=== PATIENT | female | born 1965 | race Caucasian/White ===

== ENCOUNTER → 2016-12-06 10:01 | Outpatient (CLI) | payer BC, OTHER ==
[2014-11-04 08:48] VITALS: BMI 31.8
[~2016-12-06 10:01] MED LIST: CYMBALTA60 MG PO; EFFEXOR37.5 MG PO; LORTAB 5/500 TA1 TA2 PO; MAXALT10 MG PO; MICROGESTIN FE1 TAB PO; MULTI-DAY VITAM1 TAB PO; VIACTIV PO; ZANAFLEX4 MG
--- NOTE | 2016-12-06 12:07 | NUR ---
Nutrition education for bariatric surgery: S: Pt reports she has had a gastric band for ~5 years. Pt states she has not been happy with the band due to it is either too tight or too lose and has caused her a lot of trouble. Pt did lose down to ~225# but due to issues with the band was unable to keep the weight off. Pt states she continues to work out. 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 Pt understands portion sizes of foods. O: 51 year old female Ht: 5'11" Wt: 243# IBW: 155# +/-10% BMI: 33.9 PMH: Gastric band A: Pt is very familiar with pre/post op diet phases. Pt states with the gastric band the full, pureed and soft diets did not last as long as with the gastric sleeve. Reviewed pre/post of diet phases; liquids between meals; dumping syndrome; 3 ounce meal size; no carbonated drinks or straws; protein needs and protein supplements; vitamin, mineral supplements; reviewed sample menus; stomach size; pouch stretching; no sweets, high fat foods or alcohol; eating out. Pt with very good understanding of dietary restrictions pre/post op. Pt with realistic expectations for weight loss; goal wt: 215#. Pt verbalizes understanding of all diet changes. RDN feels pt is very motivated to make the necessary lifestyle changes needed to lose weight and keep weight off long-term. P: Provided pt with printed diet information and RDN name and phone number. RDN will be available if needed. Thank you for the consult.
== END ==
LOC: D.FANS 10:01
DX: Z01.812 Encounter for preprocedural laboratory examination (principal)

== ENCOUNTER 2017-01-10 05:07 | Inpatient (IN) | payer BC, OTHER ==
[2017-01-09 08:45] LABS: HEMATOCRIT 39.6 % (36.0-48.0); HEMOGLOBIN 13.8 g/dL (12-16); MCH 34.5 pg (26.0-34.0); MCHC 34.8 g/dL (31.0-37.0); MEAN PLATELET VOLUME 9.6 fL (7.4-10.4); RDW 12.7 % (11.5-14.5); WBC 4.8 10x3/uL (4.8-10.8)
[2017-01-09 08:58] LABS: ANION GAP 13.5 mmol/L (8-16); CALCIUM 9.3 mg/dL (8.5-10.1); CARBON DIOXIDE 29.5 mmol/L (21.0-32.0); CREATININE - SERUM 0.9 mg/dL (0.6-1.3)
[~2017-01-10] VITALS: Ht 180.3 cm; Wt 112.3 kg
[2017-01-10 08:10] VITALS: BP 127/85; BMI 33.8
[2017-01-10 08:27] LABS: HCG URINE NEGATIVE (NEGATIVE)
[2017-01-10] MEDS ORDERED: HYDROCODON-ACE1 EAC7 PO (12:18)
--- NOTE | 2017-01-10 12:30 | NUR ---
RECEIVED TO ROOM 2210 FROM RECOVERY ROOM VIA BED. IV TO R HAND PATENT. LAP SITES X 4 TO ABDOMINAL WITH STERI STRIPS INTACT. VSS. RATES PAIN 2/3 ON PAIN SCALE. DENIES ANY NEEDS AT THIS TIME.
[2017-01-10 12:31] VITALS: BP 105/74
[2017-01-10 12:33] VITALS: BP 105/74; Ht 180.3 cm; Wt 112.3 kg
--- NOTE | 2017-01-10 13:27 | NUR ---
RESTING QUIETLY WITH EYES CLOSED. FAMILY AT BEDSIDE. VSS.
--- NOTE | 2017-01-10 16:07 | NUR ---
AMBULATED AROUND NURSING UNIT X 2 WITH STAFF. WILL SIT UP IN CHAIR AND ATTEMPT TO EAT SOME PUDDING. DENIES ANY FURTHER NEEDS AT THIS TIME.
--- NOTE | 2017-01-10 18:06 | NUR ---
UP AD MARIANGEL IN ROOM. VOIDING WITHOUT DIFFICULTY. TOLERATED FULL LIQUID DINNER. DENIES ANY NEEDS AT THIS TIME.
--- NOTE | 2017-01-10 19:13 | OP ---
PATIENT NAME: FILOMENA HORTA MEDICAL RECORD: [id number] :63 LOCATION:D.[facility] ADMISSION DATE: SURGEON: ANASTASIIA FORTUNE MD DATE OF OPERATION: 01/10/2017 SURGEON: Anastasiia Fortune MD PREOPERATIVE DIAGNOSES: 1. Gastric band procedure complication 2. Obesity. 3. Body mass index 34-34.9. 4. Chronic vomiting. 5. Gastroesophageal reflux disease. 6. Dysphagia. POSTOPERATIVE DIAGNOSES: 1. Gastric band procedure complication 2. Obesity. 3. Body mass index 34-34.9. 4. Chronic vomiting. 5. Gastroesophageal reflux disease. 6. Dysphagia. PROCEDURE PERFORMED: Laparoscopic gastric band removal. ANESTHESIA: General. COMPLICATIONS: None. SPECIMENS: Gastric band and subcutaneous port. Case was clean. ESTIMATED BLOOD LOSS: 50 cc. OPERATIVE COURSE: After consent was obtained, the patient was taken to the operating room and placed in the supine position on the operating table. Next, general anesthesia was given via endotracheal intubation after a timeout was taken to confirm the correct patient and procedure. The abdomen was prepped and draped in typical sterile fashion. Local anesthetic was injected just above the umbilicus. A stab incision was made with 11-blade scalpel. Using a 5-mm bladeless optical trocar, the abdomen was entered under direct laparoscopic vision. Adequate pneumoperitoneum was achieved. The abdominal cavity was inspected. No evidence of bowel injury. No evidence of bleeding. The patient was then placed in the steep reverse Trendelenburg position. At this time, trocars were placed after the administration of local anesthetic under direct laparoscopic vision, two 5-mm trocars into the right lateral quadrant, Anastasia liver retractor the subxiphoid position. The left lobe of the liver was retracted exposing the gastroesophageal junction. The band was meticulously dissected in combination of electrocautery and sharp scissor dissection. Once all adhesions were taken down, the band was released and the band was removed from stomach and placed in the left upper quadrant. The GE junction was copiously irrigated and suctioned. Hemostasis was obtained with combination of clips and electrocautery. There is no evidence of injury to the stomach. All adhesions were taken down as well as previous sutures to gain normal anatomical OPERATIVE REPORT [id number] FILOMENA HORTA position of the stomach and to release the wrap of the stomach around the old band. At this time, the abdomen was then copiously irrigated and suctioned. No evidence of bleeding, no evidence of bowel injury. The Anastasia liver retractor was removed. Next, a skin incision was made over the subcutaneous port. The subcutaneous tissue was dissected with electrocautery to the level of the port. The port was circumferentially dissected using electrocautery. At this time, the port was excised and the intra-abdominal fascia using electrocautery. The port and the gastric band were removed, dilating a small hole in the fascia and sent for permanent pathology. Next, laparoscope was reinserted. The abdominal cavity was reinspected. No evidence of bowel injury. No evidence of bleeding. All remaining instruments removed. Trocars removed. Skin was closed with 4-0 Monocryl, Mastisol and Steri-Strips. At the end of the case, all needle and sponge counts were correct. No complications occurred. The patient was extubated and transferred to the PACU in stable condition. TRANSINT:[id number] Voice Confirmation ID: [id number] DOCUMENT ID: [id number] ANASTASIIA FORTUNE MD at 1913 CC: [id number] DICTATION DATE: 01/10/17 1224 SPINDLE SANDER: 01/10/17 1758 [facility] [address] [place] [address]
--- NOTE | 2017-01-10 19:16 | NUR ---
PT IS SITTING UP IN BED WATCHING TV, STATED PAIN IS AT A 5, REQUESTED PAIN MEDICINE. 5 INCISIONS ON ABDOMINAL AREA, STERI STRIP, CLEAN AND DRY. NO SIGNS OF DISTRESS. BED IN LOW POSITION, CALL LIGHT IN REACH. CONTINUE WITH PLAN OF CARE
[2017-01-10 20:00] VITALS: BP 125/67
--- NOTE | 2017-01-10 21:50 | NUR ---
PT LYING IN BED, LIGHTS ARE TURNED OUT. EVEN RISE AND FALL OF CHEST, NO SIGNS OF DISTRESSCONTINUE TO MONITOR PT
--- NOTE | 2017-01-10 22:00 | NUR ---
PATIENT IS RESTING QUIETLY WITH EYES CLOSED. NO SIGNS OF DISTRESS NOTED. BED IN LOWEST POSITION, CALL LIGHT IN REACH. BED RIALS UP X'S 2.
[2017-01-11] VITALS: BP 111/65
[2017-01-11 04:00] VITALS: BP 103/55
[2017-01-11 05:36] LABS: BASOPHILS 0.2 % (0-2); EOSINOPHILS 2.1 % (0-7); HEMATOCRIT 35.9 % (36.0-48.0); HEMOGLOBIN 11.9 g/dL (12-16); IMMATURE GRANULOCYTES 0.2 % (0-5); MCH 33.1 pg (26.0-34.0); MCHC 33.1 g/dL (31.0-37.0); MCV 99.7 fL (80.0-100.0); MEAN PLATELET VOLUME 9.7 fL (7.4-10.4); MONOCYTES 8.7 % (2-11); NEUTROPHILS 58.8 % (40-80); PLATELET COUNT 158 10x3/uL (130-400); RDW 12.9 % (11.5-14.5); WBC 4.4 10x3/uL (4.8-10.8)
[2017-01-11 05:40] LABS: CALCIUM 8.4 mg/dL (8.5-10.1); CARBON DIOXIDE 29.3 mmol/L (21.0-32.0); CHLORIDE - SERUM 108 mmol/L (98-107); CREATININE - SERUM 0.8 mg/dL (0.6-1.3); GLUCOSE 93 mg/dL (74-106); SODIUM 143 mmol/L (136-145); eGFR NON AFRICAN AMERICAN 80 mL/min (90-120)
[2017-01-11 05:51] LABS: CALC OSMOLALITY 283 mosm/kg (275-300); POTASSIUM - SERUM 4.2 mmol/L (3.5-5.1); UREA NITROGEN 9 mg/dL (7-18)
--- NOTE | 2017-01-11 07:30 | NUR ---
ASSESSMENT COMPLETE. SL TO R HAND. LAP SITES X 5 TO ABDOMEN WITH STERI STRIPS INTACT. BRUISING NOTED AROUND INCISIONS. WANTING TO GO HOME TODAY. DENIES ANY NEEDS AT PRESENT.
[2017-01-11 07:59] VITALS: BP 147/69
--- NOTE | 2017-01-11 09:20 | NUR ---
SL REMOVED. CATHETER TIP INTACT. DISCHARGE TEACHING GIVEN TO PATIENT AND . SCRIPT FOR HYDROCODONE GIVEN TO PATIENT.
--- NOTE | 2017-01-11 09:40 | NUR ---
DC'D HOME WITH FAMILY. ESCORTED TO VEHICLE BY APPRAISAL COORDINATOR VIA WC WITH BELONGINGS.
== END 2017-01-11 09:40 | disposition home or self-care (01) | DRG 989 ==
LOC: D.OPS 05:07 → D.MS 05:07 → D.OPS 09:15 → EDSTATUS 09:15 → D.PAN 09:15 → D.OPS 09:30 → D.PAN 09:30 → D.MS 12:29 → D.OPS 12:29 → D.MS 01-11 09:40 → D.OPS 01-11 09:40
PROVIDERS: Anesthesiology; ADMIT Surgery
PROC: 0DP64CZ Removal of Extraluminal Device from Stomach, Percutaneous Endoscopic Approach (ICD-10-PCS; principal; 2017-01-10 09:30)
DX: K95.09 Other complications of gastric band procedure (principal); Y84.9 Medical procedure, unspecified as the cause of abnormal reaction of the patient, or of later complication, without mention of misadventure at the time of the procedure; R13.10 Dysphagia, unspecified; K21.0 Gastro-esophageal reflux disease with esophagitis; E66.9 Obesity, unspecified; Z68.34 Body mass index [BMI] 34.0-34.9, adult; R11.10 Vomiting, unspecified

== ENCOUNTER → 2017-03-26 08:56 | Outpatient (CLI) | payer BC, OTHER ==
[2017-01-10 12:33] VITALS: BMI 34.5
[~2017-03-26 08:56] MED LIST changes: +HYDROCODON-ACE1 EAC7 PO; +ZOFRAN ODT4 MG/UDTAB PO
== END | disposition home or self-care (01) ==
LOC: D.RAD 08:56
DX: E66.01 Morbid (severe) obesity due to excess calories (principal)

== ENCOUNTER 2017-04-02 11:35 | Day surgery (SDC) | payer BC, OTHER ==
[~2017-04-02] VITALS: Ht 180.3 cm; Wt 121.8 kg
[2017-04-02 09:12] VITALS: BP 140/91; Ht 180.3 cm; Wt 121.8 kg
[2017-04-02 09:46] LABS: HEMATOCRIT 40.8 % (36.0-48.0); HEMOGLOBIN 13.3 g/dL (12-16); MCH 32.9 pg (26.0-34.0); MCHC 32.6 g/dL (31.0-37.0); MEAN PLATELET VOLUME 9.5 fL (7.4-10.4); RBC 4.04 10x6/uL (4.00-5.40); RDW 13.1 % (11.5-14.5); WBC 4.4 10x3/uL (4.8-10.8)
[~2017-04-02 11:35] MED LIST changes: -ZOFRAN ODT4 MG/UDTAB PO
--- NOTE | 2017-04-02 12:55 | NUR ---
PT REC'D TO ROOM. ALERT, ORIENTED, TALKING.
--- NOTE | 2017-04-02 13:25 | NUR ---
TOLERATED FULL LIQ DIET.
--- NOTE | 2017-04-02 13:45 | NUR ---
IV D/C'D CATH INTACT.
--- NOTE | 2017-04-02 13:50 | NUR ---
D/C INSTRUCTIONS EXPLAINED TO PT. VOICED UNDERSTANDING. COPIES OF ALL GIVEN. D/C'D HOME VIA W/C TO PRIVATE CAR.
== END 2017-04-02 16:02 | disposition home or self-care (01) ==
LOC: D.OPS 11:35
PROVIDERS: Anesthesiology
DX: K21.9 Gastro-esophageal reflux disease without esophagitis (principal); R11.10 Vomiting, unspecified; E66.01 Morbid (severe) obesity due to excess calories; Z68.37 Body mass index [BMI] 37.0-37.9, adult; Z01.812 Encounter for preprocedural laboratory examination

== ENCOUNTER → 2017-04-09 14:41 | Outpatient (CLI) | payer BC, OTHER ==
[2017-04-02 09:12] VITALS: BMI 37.4
[~2017-04-09 14:41] MED LIST changes: +ZOFRAN ODT4 MG/UDTAB PO
== END | disposition home or self-care (01) ==
LOC: D.MAMMO 04-04 14:15
DX: Z12.31 Encounter for screening mammogram for malignant neoplasm of breast (principal)

== ENCOUNTER → 2017-04-26 09:15 | Outpatient (CLI) | payer BC, OTHER ==
[2017-04-02 09:12] VITALS: BMI 37.4
== END | disposition home or self-care (01) ==
LOC: D.RT 09:00
DX: R06.00 Dyspnea, unspecified (principal)

== ENCOUNTER 2017-05-09 06:10 | Inpatient (IN) | payer BC, OTHER ==
[2017-05-08 14:17] LABS: HEMATOCRIT 42.1 % (36.0-48.0); HEMOGLOBIN 14.1 g/dL (12-16); MCH 33.6 pg (26.0-34.0); MCHC 33.5 g/dL (31.0-37.0); MCV 100.2 fL (80.0-100.0); MEAN PLATELET VOLUME 9.6 fL (7.4-10.4); RBC 4.2 10x6/uL (4.00-5.40); RDW 12.8 % (11.5-14.5); WBC 6.4 10x3/uL (4.8-10.8)
[2017-05-09] VITALS (10 sets, daily range): BP systolic 133–171; BP diastolic 80–95; BMI 41.4
[~2017-05-09] VITALS: Ht 177.8 cm; Wt 127.3 kg
[~2017-05-09 06:10] MED LIST changes: -ZOFRAN ODT4 MG/UDTAB PO
[2017-05-10 00:25] VITALS: BP 159/79
[2017-05-10 01:25] VITALS: BP 150/80
[2017-05-10 05:00] VITALS: BP 159/87; Ht 177.8 cm; Wt 127.3 kg
[2017-05-10 06:11] LABS: BASOPHILS 0.1 % (0-2); EOSINOPHILS 0 % (0-7); HEMATOCRIT 38.9 % (36.0-48.0); HEMOGLOBIN 12.6 g/dL (12-16); IMMATURE GRANULOCYTES 0.2 % (0-5); LYMPHOCYTES 7.8 % (15-50); MCH 32.7 pg (26.0-34.0); MCHC 32.4 g/dL (31.0-37.0); MEAN PLATELET VOLUME 9.8 fL (7.4-10.4); MONOCYTES 5.6 % (2-11); NEUTROPHILS 86.3 % (40-80); PLATELET COUNT 202 10x3/uL (130-400); RBC 3.85 10x6/uL (4.00-5.40); RDW 12.9 % (11.5-14.5)
[2017-05-10 06:15] LABS: WBC 8.9 10x3/uL (4.8-10.8)
[2017-05-10 06:33] LABS: ALBUMIN 3.4 g/dL (3.4-5.0); ALKALINE PHOSPHATASE 60 U/L (46-116); ALT (SGPT) 55 U/L (10-68); BILIRUBIN - TOTAL 0.63 mg/dL (0.2-1.3); CALC OSMOLALITY 273 mosm/kg (275-300); CALCIUM 8.6 mg/dL (8.5-10.1); CARBON DIOXIDE 29.3 mmol/L (21.0-32.0); CHLORIDE - SERUM 99 mmol/L (98-107); CREATININE - SERUM 0.6 mg/dL (0.6-1.3); GLUCOSE 127 mg/dL (74-106); POTASSIUM - SERUM 4.1 mmol/L (3.5-5.1); PROTEIN - SERUM 6.5 g/dL (6.4-8.2); SODIUM 136 mmol/L (136-145); UREA NITROGEN 13 mg/dL (7-18); eGFR NON AFRICAN AMERICAN > 90 mL/min (90-120)
--- NOTE | 2017-05-10 08:00 | NUR ---
REC'D IN BED AWAKE AND ALERT. RESP EVEN AND UNLABORED WITH NO DISTRESS NOTED. CAN EXPRESS NEEDS AND WANTS. NO C/O NOTED OR VOICED AT THIS TIME. ASSESSMENT COMPLETED. C/L IN REACH AT BEDSIDE.
[2017-05-10 08:20] VITALS: BP 169/88
[2017-05-10] MEDS ORDERED: HYDROCODON-ACE1 EAC7 PO (10:41)
[2017-05-10] MEDS ORDERED: ZOFRAN ODT4 MG/UDTAB PO (10:41)
--- NOTE | 2017-05-10 11:16 | NUR ---
NUTRITION MONITORING & EVAL SPOKE WITH PT RE:GASTRIC SLEEVE DIET GUIDELINES. ANSWERED PT QUESTIONS. RD FOLLOWING
[2017-05-10 12:26] VITALS: BP 134/74
--- NOTE | 2017-05-10 13:25 | NUR ---
Patient Name: FILOMENA HORTA Admission Status: Elective Accout number: [id number] Admission Date: 05-09-2017 : 1965 Admission Diagnosis:MORBID (SEVERE) OBESITY DUE TO EXCESS CALORIES Attending: ANASTASIIA FORTUNE Current LOS: 1 Anticipated DC Date: 05-10-2017 Planned Disposition: Home Primary Insurance: eSNF O Discharge Planning Comments: CM met with patient and spouse regarding discharge planning / needs. Patient and spouse state discharge plan is to return home. States home environment is safe. Denies any discharge planning needs. Declined need for home health services. CM will continue to follow and assist as needed with discharge planning / needs. Is the patient Alert and Oriented? Yes * How many steps to enter\exit or inside your home? 0 * PCP Dr. Archuleta * Pharmacy [facility] * Preadmission Environment Home with Family * ADLs Independent * Equipment None * List name and contact numbers for known caregivers / representatives who currently or will assist patient after discharge: Alli Horta, spouse, * Community resources currently utilized None * Additional services required to return to the preadmission environment? No * Can the patient safely return to the preadmission environment? Yes * Has this patient been hospitalized within the prior 30 days at any hospital? No Wafer Fab Technician: Nalini Prescott
--- NOTE | 2017-05-10 13:27 | OP ---
PATIENT NAME: FILOMENA HORTA MEDICAL RECORD: [id number] :63 LOCATION:D.[facility] ADMISSION DATE:05/09/17 SURGEON: ROBERT CARTER MD DATE OF OPERATION: 05/09/2017 STEM DRYER MAINTAINER'S NOTE I assisted Dr. RAI Fortune with the laparoscopic sleeve gastrectomy for morbid obesity. I was present and scrubbed in through all the critical portions of the operation. I scrubbed in as the trocars were being placed and was there until the final closure of the incisions. Due to the complexity of the procedure, it was necessary to have 2 attending surgeons present. I assisted with retraction. I divided some of the short gastrics with the Harmonic scalpel. I did some dissection along the left hanna with the Harmonic scalpel. I divided some retrogastric adhesions with the Harmonic scalpel. I assisted him with suturing as he was oversewing the staple line. I irrigated and aspirated during the leak test. I was present to close the skin at the trocar sites. TRANSINT:[id number] Voice Confirmation ID: [id number] DOCUMENT ID: [id number] ROBERT CARTER MD at 1327 CC: ANASTASIIA FORTUNE MD [id number] DICTATION DATE: 05/09/171827 SEAL EXTRUSION OPERATOR: 05/09/172144 ADM IN [place] [id number] [place] [id number]
--- NOTE | 2017-05-10 16:00 | NUR ---
PT WITHOUT DISTRESS.WILL DC HOME.
--- NOTE | 2017-05-10 16:00 | NUR ---
PT WAS DISCHARGE AT THIS TIME WITH D/C SUMMARY GIVEN WELL D/C INSTRUCTION. WAS MADE AWARE OF RETURN APPOINTMENTS WELL ALL MEDICATION CALLED OVER TO PHARMACY. NO C/O NOTED UPON D/C. AT BEDSIDE AND ASSISTED WITH DRESSING.
--- NOTE | 2017-06-07 07:56 | DS ---
PATIENT:FILOMENA HORTA :63 MEDICAL RECORD: [id number] DISCHARGE SUMMARY ADMISSION DATE: 05/09/17 DISCHARGE DATE: 05/10/17 DATE OF ADMISSION: 05/09/2017 DATE OF DISCHARGE: 05/10/2017 ADMITTING PHYSICIAN: Anastasiia Fortune MD DISCHARGING PHYSICIAN: Anastasiia Fortune MD HOSPITAL COURSE: A 51-year-old female, who was admitted to the hospital for an elective vertical sleeve gastrectomy for the treatment of morbid obesity. The patient tolerated the procedure well and postoperatively, she was transferred to the floor in stable condition. Her postoperative course was without complication. She was started on a bariatric phase 1 clear liquid diet. On postoperative day 1, she had a Gastrografin swallow that was within normal limits. She was advanced to a bariatric phase 2 liquid diet. At the time of discharge, she was tolerating a diet. She was ambulating independently. She was voiding without difficulty, and her pain was well controlled on oral pain medicines. DISCHARGE CONDITION: Stable. DISCHARGE DIET: Bariatric phase 2 liquid diet for 2 weeks. WOUND CARE: The patient may shower, soap and water to the wound daily. DISCHARGE ACTIVITY: Activity as tolerated. No heavy lifting or strenuous activity for 2 weeks. FOLLOWUP: With Dr. Fortune in 2 weeks. Please see electronic medical record for full list of discharge medications. TRANSINT:[id number] Voice Confirmation ID: [id number] DOCUMENT ID: [id number] ANASTASIIA FORTUNE MD at 0756 CC: [id number] DICTATION DATE: 06/06/17 1444 ARTIFICIAL STONE APPLICATOR: 06/07/17 0708 DIS IN 05/10/17 [address] [place] [address]
== END 2017-05-10 15:43 | disposition home or self-care (01) | DRG 621 ==
LOC: D.SDCHOLD 06:10 → D.MS 06:10 → D.SDCHOLD 12:45 → D.MS 18:38
PROVIDERS: Anesthesiology; ADMIT Surgery
PROC: 0DB64Z3 Excision of Stomach, Percutaneous Endoscopic Approach, Vertical (ICD-10-PCS; principal; 2017-05-09 13:00)
DX: E66.01 Morbid (severe) obesity due to excess calories (principal); Z68.35 Body mass index [BMI] 35.0-35.9, adult; R13.10 Dysphagia, unspecified

== ENCOUNTER → 2017-07-20 19:51 | Outpatient (CLI) | payer OTHER ==
[2017-05-10 05:00] VITALS: BMI 40.2
[~2017-07-20 19:51] MED LIST changes: +ZOFRAN ODT4 MG/UDTAB PO
== END | disposition home or self-care (01) ==
LOC: D.MAMMO 05-08 11:30
DX: R92.8 Other abnormal and inconclusive findings on diagnostic imaging of breast (principal)

== ENCOUNTER → 2017-12-18 15:23 | Outpatient (CLI) | payer OTHER ==
[2017-05-10 05:00] VITALS: BMI 40.2
== END | disposition home or self-care (01) ==
LOC: D.MRI 15:23
DX: M25.552 Pain in left hip (principal)

== ENCOUNTER → 2018-01-29 09:51 | Outpatient (CLI) | payer OTHER ==
[2017-05-10 05:00] VITALS: BMI 40.2
[2018-01-29 10:49] LABS: CREATININE - SERUM 0.8 mg/dL (0.6-1.3)
[2018-01-29 11:01] LABS: BASOPHILS 0.4 % (0-2); EOSINOPHILS 1.3 % (0-7); HEMOGLOBIN 13.5 g/dL (12-16); IMMATURE GRANULOCYTES 0.2 % (0-5); LYMPHOCYTES 29.3 % (15-50); MCH 34.1 pg (26.0-34.0); MCHC 33.8 g/dL (31.0-37.0); MEAN PLATELET VOLUME 9.9 fL (7.4-10.4); MONOCYTES 8.9 % (2-11); NEUTROPHILS 59.9 % (40-80); PLATELET COUNT 195 10x3/uL (130-400); RBC 3.96 10x6/uL (4.00-5.40); RDW 12.1 % (11.5-14.5); WBC 4.7 10x3/uL (4.8-10.8)
== END | disposition home or self-care (01) ==
LOC: D.LAB 11-02 08:00
PROVIDERS: Internal Medicine Pulmonary Disease
DX: Z01.812 Encounter for preprocedural laboratory examination (principal); K21.9 Gastro-esophageal reflux disease without esophagitis